=== PATIENT | female | born 2000 | race Caucasian/White ===

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

== ENCOUNTER 2018-02-19 15:47 | Emergency (ER) | payer MEDICAID ==
[~2018-02-19] VITALS: Ht 167.6 cm; Wt 116.0 kg
[~2018-02-19 15:47] MED LIST changes: +PRED5TAB PO
[2018-02-19 16:20] VITALS: BP 126/78
[2018-02-19] MEDS ORDERED: ipratropium/albuterol 3ml nebule NEB ONE (16:30)
[2018-02-19] MEDS ORDERED: AZIT250T83 PO (17:44)
== END 2018-02-19 18:07 | disposition home or self-care (01) ==
LOC: ER 15:47
DX: J45.901 Unspecified asthma with (acute) exacerbation (principal); Z87.01 Personal history of pneumonia (recurrent); Z79.899 Other long term (current) drug therapy; Z91.018 Allergy to other foods
CPT/HCPCS: 71045; 94640; 94760; 99283